=== PATIENT | female | born 1985 | race African-American/Black ===

== ENCOUNTER 2016-03-01 13:33 | Outpatient (CLI) | payer BC, MEDICAID ==
[2016-03-01] MEDS ORDERED: HYDROXYZINE PAMOATE 50 MG CAPSULE ONE (15:12)
[2016-03-01 15:27] LABS: APPEARANCE,URINE SLIGHTLY-CLOUDY; BILIRUBIN,URINE NEGATIVE (NEGATIVE); GLUCOSE, URINE NEGATIVE (NEGATIVE); KETONES,URINE NEGATIVE (NEGATIVE); LEUKOCYTE ESTERASE,URINE NEGATIVE (NEGATIVE); NITRITE,URINE NEGATIVE (NEGATIVE); PROTEIN,URINE NEGATIVE (NEGATIVE); URINE SPECIFIC GRAVITY 1.011; UROBILINOGEN,URINE NEGATIVE mg/dL (<2.0)
--- NOTE | 2016-03-01 15:37 | Non Stress Test Report ---
Non Stress Test Datetime Report Generated by CPN: 03/01/2016 15:37 DEMOGRAPHIC EGA NST: 39.6 INDICATION Indication for Study: Ordered by Provider; Other MONITORING Monitor Explained: Monitor Explained; Test Explained; Patient Verbalized Understanding Time on Monitor: 03/01/2016 14:14 Time off Monitor: 03/01/2016 15:21 NST Duration: 67 NST INTERVENTIONS NST Interventions: PO Hydration; Reposition Patient Physician Notified NST: Dr. Neilsen BABY A: [id number] BABY A Movement : Present Contraction Frequency : irregular FHR Baseline : 140 Accelerations : 15X15 Decelerations : None Variability : Moderate 6-25bpm NST Review: Meets Criteria for Reactive NST NST Review and Verified By : NILO Ellis Results: Reactive NST REPORT Report Trigger: Send Report
[2016-03-01 15:43] LABS: URINE BARBITURATES SCREEN NEGATIVE; URINE METHADONE SCREEN NEGATIVE; URINE PHENCYCLIDINE SCREEN NEGATIVE
--- NOTE | 2016-03-03 11:56 | Antepartum Discharge Summary ---
Antepartum DC Datetime Report Generated by CPN: 03/03/2016 11:56 DIET/ACTIVITY/RESTRICTIONS Diet: Regular (03/01/2016 15:36:Delaney Ambrocio RN) Activity: Normal Activity (03/01/2016 15:36:Delaney Ambrocio, RN) TEACHING/INSTRUCTIONS/REFERRALS Referrals: None (03/01/2016 15:36:Delaney Ambrocio RN) Educational Materials- Other: Kick counts and term precautions (03/01/2016 15:36:Delaney Ambrocio RN) DISCHARGE INFORMATION Discharged AMA: No (03/01/2016 15:36:Delanye Ambrocio RN) Discharge Date/Time: 03/01/2016 15:45 (03/01/2016 15:36:Delaney Ambrocio RN) Discharged To: Home (03/01/2016 15:36:Delaney Ambrocio RN) Discharge Provider Name: Dr. Ramsey (03/01/2016 15:36:Delaney Ambrocio RN) Accompanied By: friend (03/01/2016 15:36:Delaney Ambrocio RN) Discharge Method: Ambulatory (03/01/2016 15:36:Delaney Ambrocio RN) Condition: Stable (03/01/2016 15:36:Delaney Ambrocio RN) FOLLOW UP INFORMATION Follow Up With: [facility] (03/01/2016 15:36:Delaney Ambrocio RN) Follow Up On: As Scheduled (03/01/2016 15:36:Delaney Ambrocio RN) Follow Up Phone Number: [facility] - (03/01/2016 15:36:Delaney Ambrocio RN) Comments: Patient given vistaril 50 mg PO prior to discharge per Dr. Ramsey. All questions answered. Agrees to plan of care. Instructed to follow-up as previously scheduled. (03/01/2016 15:36:Delaney Ambrocio RN) GENERAL INSTR-CALL PROVIDER IF: Contractions: Contractions or cramps become more frequent than 8 in one hour or 4 in 20 minutes; Regular painful contractions every 5 minutes or less for one hour. Time your contractions from the beginning of one to the beginning of the next (03/01/2016 15:36:Delaney Ambrocio RN) Pressure: Pressure in your vagina or lower abdomen that may feel like the baby is pushing down (03/01/2016 15:36:Delaney Ambrocio RN) Period Like Cramps: Period-like cramps or low dull backache that may come and go (03/01/2016 15:36:Delaney Ambrocio RN) Cramps/Diarrhea: Abdominal cramps that may be accompanied by diarrhea (03/01/2016 15:36:Delaney Ambrocio RN) Gush of Fluid/Blood: Gush of fluid or blood from your vagina (it is normal to have spotting after vaginal exam or intercourse) (03/01/2016 15:36:Delaney Ambrocio RN) Vaginal Discharge: Change in the type or amount of vaginal discharge (03/01/2016 15:36:Delaney Ambrocio RN) Decreased Movement: Your baby is not moving as much as usual- 4 movements in 1 hour after drinking and resting on side (03/01/2016 15:36:Delaney Ambrocio RN) Temperature: Temperature greater than 100.0(F) orally (03/01/2016 15:36:Delaney Ambrocio RN) Hypertension Signs/Symptoms: Severe headache which is not relieved 30 minutes after taking Tylenol(Acetaminophen); Blurry vision or spots before your eyes; Severe heartburn or pain on the upper right side of your abdomen that is not relieved by an antacid; Increased swelling in your face, hands or feet (03/01/2016 15:36:Delaney Ambrocio RN) Urinary Output: Decreased urinary output or dark colored urine (03/01/2016 15:36:Delaney Ambrocio RN) ADDITIONAL INSTRUCTIONS N/V Bazine/Crackers: Keep dry toast/crackers with you to [facility] on (03/01/2016 15:36:Delaney Ambrocio RN) N/V Frequent Meals: Eat small frequent meals (03/01/2016 15:36:Delaney Ambrocio RN) N/V Empty Stomach: Try to keep something in your stomach (don't let your stomach get empty) (03/01/2016 15:36:Delaney Ambrocio RN) N/V Time Getting Up: Take your time getting up (03/01/2016 15:36:Delaney Ambrocio RN) N/V Avoid Smells: Avoid smells that make you feel sick (03/01/2016 15:36:Delaney Ambrocio RN) Travel Seatbelts: Wear seatbelts or safety/lap belts (03/01/2016 15:36:Delaney Ambrocio RN) Travel Walk Frequently: Walk frequently, every 1-2 hours (03/01/2016 15:36:Delaney Ambrocio RN) Travel Comfort Clothes: Wear clothing that does not constrict and comfortable shoes (03/01/2016 15:36:Delaney Ambrocio RN) Travel Light Snack: Keep a light snack (e.g. dry crackers) with you at all times to prevent nausea (03/01/2016 15:36:Delaney Ambrocio RN) Travel Hydration: Drink plenty of water, low sodium and noncaffeinated drinks (03/01/2016 15:36:Delaney Ambrocio RN) Travel Medications: DO NOT take any medication that is not approved by your physician first (03/01/2016 15:36:Delaney Ambrocio RN) Travel PN Records: Always keep a copy of your medical record with you just in case (03/01/2016 15:36:Delaney Ambrocio RN) Edema Avoid Standing: Avoid standing for long periods, keep legs up when you can (03/01/2016 15:36:Delaney Ambrocio RN) Edema Rest on Side: When resting, lie on your side (left is best) (03/01/2016 15:36:Delaney Ambrocio RN) Edema Limit Sodium: Limit the amount of salty foods you eat (03/01/2016 15:36:Delaney Ambrocio RN) Edema Support Hose: Try to wear support hose as much as possible (03/01/2016 15:36:Delaney Ambrocio RN) Exercise Overheating: Avoid situations that would cause you to become overheated (03/01/2016 15:36:Delaney Ambrocio RN) Exercise Weather: Exercise outdoors only if the weather is reasonable and not too hot (03/01/2016 15:36:Delaney Ambrocio RN) Exercise Exertion: Do not over exert yourself when you exercise (03/01/2016 15:36:Delaney Ambrocio RN) Exercise Hydration: Drink plenty of fluids, especially water (03/01/2016 15:36:Delaney Ambrocio RN) Exercise Support: Wear good support hose, bra and shoes when exercising (03/01/2016 15:36:Delaney Ambrocio RN) Varicose Veins Instructions: Do not stand for long periods of time (03/01/2016 15:36:Delaney Ambrocio RN) Varicose Veins Elevate Sit: Try to keep your legs elevated when you are sitting (03/01/2016 15:36:Delaney Ambrocio RN) Varicose Veins Elevate Lying: When lying down, keep your legs elevated (03/01/2016 15:36:Delaney Ambrocio RN) Varicise Veins Non Binding: When wearing stockings or socks, make sure they are not too tight and bind your legs (03/01/2016 15:36:Delaney Ambrocio RN) Varicose Veins Support: Wear support hose/stockings at all times (03/01/2016 15:36:Delaney Ambrocio RN) Varicose Veins Periodic Move: If you have a job where you sit a lot, get up periodically and walk around (03/01/2016 15:36:Delaney Ambrocio, NILO)
--- NOTE | 2016-03-03 11:56 | L&D Current Admission ---
Current Admit Datetime Report Generated by CPN: 03/03/2016 11:56 ADMISSION INFORMATION Chief Complaint: Contractions (03/01/2016 14:29:Delaney Ambrocio, NILO)
--- NOTE | 2016-03-03 11:57 | L&D Flow Sheet ---
LD Flowsheet Datetime Report Generated by CPN: 03/03/2016 11:57 Datetime: 03/01/2016 15:21 Uterine Activity Monitor Mode: External (Delaney Ambrocio, RN) Frequency (min): 2-7 (Delaney Ambrocio, RN) Quality: Moderate (Delaney Ambrocio, RN) Duration (sec): 90-130 (Delaney Ambrocio, RN) Resting Tone (Palpate): Relaxed (Delaney Ambrocio, RN) Contraction Comments: irregular pattern (Delaney Lolly, RN) Assessment A Monitor Mode: External US (Del[place], RN) FHR Baseline Rate : 140 (Del[place], RN) FHR Baseline Changes: No Baseline Change (Delaney [place], RN) Variability: Moderate 6-25 bpm (Delaney [place], RN) Accelerations: 15X15 (Delaney [place], RN) Decelerations: None (Delanye [place], RN) Datetime: 03/01/2016 15:20 Medications Antiemetics/Antacids: Vistaril (mg) @ 50 (Delaney Ambrocio, RN) Datetime: 03/01/2016 15:14 Vital Signs Stage of : Antepartum (Delaney Ambrocio RN) NBP Sys/Ai/Mean (mmHg): 107 (QS system process) : 58 (QS system process) : 76 (QS system process) Pulse: 85 (QS system process) Respirations: 12 (Delaney Ambrocio RN) LaborFlag: Antepartum (QS system process) Datetime: 03/01/2016 15:00 Uterine Activity Monitor Mode: External (Delaney [place], RN) Quality: Moderate (Delaney [place], RN) Duration (sec): 60-130 (Delaney [place], RN) Resting Tone (Palpate): Relaxed (Delaney [place], RN) Contraction Comments: irregular pattern (Delaney [place], RN) Assessment A Monitor Mode: External US (Delaney [place], RN) FHR Baseline Rate : 140 (Delaney Lolly, RN) FHR Baseline Changes: No Baseline Change (Delaney Lolly, RN) Variability: Moderate 6-25 bpm (Delaney [place], RN) Accelerations: 15X15 (Delaney [place], RN) Decelerations: None (Delaney [place], RN) Communication Communication: Report Given to @ Dr. Ramsey (Delaney Ambrocio RN) Provider Notified (Name): Dr. Ramsey notified of patient OB history and chief complainyt of lower sharp abdominal pain, cervical exam /, and WNL urinalysis results, reactive NST. Orders received to discharge patient home to self care with Vistaril 50 mg PO. (Delaney Ambrocio RN) Notification Reason: Status Update; Status; Labor Status; Membrane Status; Uterine Activity; Pain; Lab/Diagnostic Study (Delaney Ambrocio RN) Communication Comments: Provider reviewed strip (Delaney Ambrocio RN) Datetime: 03/01/2016 14:49 Vaginal Exam Dilatation (cm): 1.0 (Delaney Ambrocio RN) Effacement (%): 50 (Delaney Ambrocio RN) Station: -2 (Delaney Ambrocio RN) Exam by: Shefali Ambrocio RN (Delaney Ambrocio RN) Vaginal Bleeding: None (Delaney Ambrocio RN) Cervix, Consistency: Soft (Delaney Ambrocio RN) Cervix, Position: Posterior (Delaney Ambrocio RN) Vaginal Exam Comments: Patient with labial peircing x1. Instructed to remove prior to delivery (Delaney Ambrocio RN) Datetime: 03/01/2016 14:43 Vital Signs Stage of : Antepartum (Delaney Ambrocio RN) NBP Sys/Ai/Mean (mmHg): 108 (QS system process) : 56 (QS system process) : 76 (QS system process) Pulse: 95 (QS system process) Respirations: 14 (Delaney Ambrocio RN) LaborFlag: Antepartum (QS system process) Datetime: 03/01/2016 14:30 Uterine Activity Monitor Mode: External; Palpation (Delaney Lolly, RN) Frequency (min): 3.5-4 (Delaney Lolly, RN) Quality: Moderate (Delaney Lolly, RN) Duration (sec): 90-110 (Delaney Lolly, RN) Resting Tone (Palpate): Relaxed (Delaney [place], RN) Assessment A Monitor Mode: External US (Delaney [place], RN) FHR Baseline Rate : 140 (Delaney [place], RN) FHR Baseline Changes: No Baseline Change (Delaney [place], RN) Variability: Moderate 6-25 bpm (Delaney [place], RN) Accelerations: 15X15 (Delaney Lolly, RN) Decelerations: None (Delaney [place], RN) Comments: reports positive movement (Delaney [place], RN) Datetime: 03/01/2016 14:29 Temperature (F): 98.4 (Delaney Ambrocio, RN) Temperature (C): 36.9 (QS system process) Temperature Route: Oral (Delaney Ambrocio, RN) Monitor Interventions for UA: [place] Adjusted (Delaney Ambrocio, RN) Frequency (min): q 3-4 minutes, patient states (Delaney [place], RN) Assessment A Monitor Mode: External US (Delaney Ambrocio, RN) Monitor Interventions for FHR: Ultrasound Adjusted (Delaney [place], RN) Pain Pain Scale: 3 (Delaney [place], RN) Pain Presence: Intermittent ([facility]) Pain Type: Sharp; Contraction ([facility]) Pain Location: Abdomen ([facility]) Pain Goal: 1 ([facility], [facility]) Pain Relief Measures: Comfort Measures ([facility], RN) Pain Coping: Breathing Through Contractions ([facility]) Vaginal Bleeding: None ([facility], RN) Maternal Assessment Level of Consciousness: Fully Conscious ([facility], [facility]) DTR's/Clonus: DTRs 2+; No Clonus ([facility], RN) Headache: Denies ([facility], RN) Breath Sounds, Left: Clear and Equal ([facility], RN) Breath Sounds, Right: Clear and Equal ([facility], RN) Nausea/Vomiting: Denies ([facility], RN) RUQ Epigastric Pain: Denies ([facility]) Patient Care Oxygen Method: Room Air (Delaney Ambrocio RN) Patient Position/Activity: Right Lateral; Semi-Fowlers (Delaney Ambrocio RN) Comfort Measures: Breathing/Relaxation; Family Support (Delaney Ambrocio RN) I/O Interventions: Clear Liquids Given (Delaney Ambrocio RN) Teaching Instructional Method: Verbal; Patient Instructed; Family/Support Person Instructed; Verbalized Understanding (Delaney Ambrocio RN) Plan of Care: Plan of Care Discussed; Vaginal Delivery; Labor (Delaney Ambrocio, NILO) Unit Routine: [place] to Room; Call Ann; Bed; Visiting Policy; Waiting Areas; Security; Phone/Cell Phone Use; Unit Personnel; Handwashing; Flu/Illness Precautions; Monitoring; Safety/Fall Risk Prevention; Diet/Nutrition Services; Bathroom Privileges; Routine Time Outs (Delaney Ambrocio, RN) Labor/Induction: Labor Stages; Activity (Delaney Ambrocio, RN) Pain Management: Pain Scale/Goals; Comfort Measures (Delaney Ambrocio RN) Related: Common Discomforts of ; Maternal Physical Changes; Maternal Emotional Changes; Nutrition; Hydration; Activity and Rest (Delaney Ambrocio, NILO) LaborFlag: Labor (QS system process) Datetime: 03/01/2016 14:14 Vital Signs Stage of : Labor (Delaney Lolly, RN)
--- NOTE | 2016-03-03 11:57 | L&D Discharge Summary ---
OB Discharge Summary Datetime Report Generated by CPN: 03/03/2016 11:57 DISCHARGE DIAGNOSIS Diagnosis/Symptoms: False Labor Diagnoses/Symptoms Other: False Labor Gestation: 39.6 Number of Babies in Womb: 1 Parity: 0 DIET/ACTIVITY/RESTRICTIONS Diet: Regular Activity: Normal Activity TEACHING/INSTRUCTIONS/REFERRALS Referrals: None Educational Materials- Other: Kick counts and term precautions DISCHARGE INFORMATION Discharged AMA: No Discharge Date/Time: 03/01/2016 15:45 Discharged To: Home Discharge Provider Name: Dr. Ramsey Accompanied By: friend Discharge Method: Ambulatory Condition: Stable FOLLOW UP INFORMATION Follow Up With: [facility] Follow Up On: As Scheduled Follow Up Phone Number: [email or web address] - Comments: Patient given vistaril 50 mg PO prior to discharge per Dr. Ramsey. All questions answered. Agrees to plan of care. Instructed to follow-up as previously scheduled. GENERAL INSTR-CALL PROVIDER IF: Contractions: Contractions or cramps become more frequent than 8 in one hour or 4 in 20 minutes; Regular painful contractions every 5 minutes or less for one hour. Time your contractions from the beginning of one to the beginning of the next Pressure: Pressure in your vagina or lower abdomen that may feel like the baby is pushing down Period Like Cramps: Period-like cramps or low dull backache that may come and go Cramps/Diarrhea: Abdominal cramps that may be accompanied by diarrhea Gush of Fluid/Blood: Gush of fluid or blood from your vagina (it is normal to have spotting after vaginal exam or intercourse) Vaginal Discharge: Change in the type or amount of vaginal discharge Decreased Movement: Your baby is not moving as much as usual- 4 movements in 1 hour after drinking and resting on side Temperature: Temperature greater than 100.0(F) orally
--- NOTE | 2016-03-03 11:57 | L&D General Admission ---
General Admit Datetime Report Generated by CPN: 03/03/2016 11:57 INFORMATION Patient Age: 30 (03/01/2016 13:33:QS system process) EDC: 03/02/2016 00:00 (03/01/2016 14:18:Delaney Ambrocio RN) : 1 (03/01/2016 14:18:Delaney Ambrocio RN) Para: 0 (03/01/2016 14:18:Gloria Kay RN) Term: 0 (03/01/2016 14:18:Gloria Kay RN) : 0 (03/01/2016 14:18:Gloria Kay RN) Spontaneous Abortions: 0 (03/01/2016 14:18:Gloria Kay RN) Induced Abortions: 0 (03/01/2016 14:18:Gloria Kay RN) Livin (03/01/2016 14:18:Gloria Kay RN) Cesareans: 0 (03/01/2016 14:18:Gloria Kay RN) VBACs: 0 (03/01/2016 14:18:Gloria Kay RN) Ectopic: 0 (03/01/2016 14:18:Gloira Kay RN) Multiple Births: 0 (03/01/2016 14:18:Gloria Kay RN) Baby, Number in Womb: 1 (03/01/2016 15:36:Delaney Ambrocio RN) Baby, Number in Womb: 0 (03/01/2016 14:18:Gloria Kay RN) CARE Primary Metallurgical Or Materials Technician: [facility] (03/01/2016 14:18:Delaney Ambrocio RN) Adequate Care: Yes (03/01/2016 14:18:Delaney Ambrocio RN) Prepregnancy Weight (lb): 148 (03/01/2016 14:18:Delaney Ambrocio RN) Prepregnancy Weight (kg): 67.3 (03/01/2016 14:18:QS system process) Height (in): 62 (03/01/2016 14:44:QS system process) ALLERGIES Medication Allergy: No (03/01/2016 14:18:Gloria Kay RN) Medication Allergies: No Known Allergies (03/01/2016) (03/01/2016 14:43:QS system process) Medication Allergies: denies (03/01/2016 14:18:Delaney Ambrocio RN) Latex Allergy: No Latex Allergies (03/01/2016 14:18:Delaney Ambrocio RN) Food Allergies: denies (03/01/2016 14:18:Delaney Ambrocio RN) Environmental Allergies: denies (03/01/2016 14:18:Delaney Ambrocio RN) COMMUNICATION Primary Language: German (03/01/2016 14:18:Delaney Ambrocio RN) Medical Tx Preferred Language: German (03/01/2016 14:18:Delaney Ambrocio RN) DEMOGRAPHICS Address: [address] [place] [address] [place] [address] (03/01/2016 13:33:QS system process) Zipcode: [address] (03/01/2016 13:33:QS system process) Home (03/01/2016 13:33:QS system process) SSN: [id number] (03/01/2016 13:33:QS system process) Next of Kin Name: VADIM DENISE (03/01/2016 13:33:QS system process) Next of Kin (03/01/2016 13:33:QS system process) Next of Kin Relationship: MO (03/01/2016 13:33:QS system process) Date of : 1985 (03/01/2016 13:33:QS system process) Marital Status: Single (03/01/2016 13:33:QS system process) Sex: Female (03/01/2016 13:33:QS system process) Race: (03/01/2016 13:33:QS system process) Ethnicity: Non- or (03/01/2016 13:33:QS system process) Worship: None (03/01/2016 13:33:QS system process) DRUG AND ALCOHOL USE Alcohol: No (03/01/2016 14:18:Delaney Ambrocio RN) Cigarettes: Never Smoker. [id number] (03/01/2016 14:18:Delaney Ambrocio RN) Marijuana: No (03/01/2016 14:18:Delaney Ambrocio RN) Cocaine: No (03/01/2016 14:18:Delaney Ambrocio RN) Other Illicit Drugs: No (03/01/2016 14:18:Delaney Ambrocio RN) VACCINE HISTORY Influenza Vaccine: Yes (03/01/2016 14:18:Delaney Ambroico RN) Pneumococcal Vaccine: No (03/01/2016 14:18:Delaney Ambrocio RN) Tetanus Vaccine: Yes (03/01/2016 14:18:Delaney Ambrocio RN) Tdap Vaccine: Yes (03/01/2016 14:18:Delaney Ambrocio RN) Hepatitis B Vaccine: Yes (03/01/2016 14:18:Delaney Ambrocio RN) Foxing Cutting Machine Operator: [facility] (03/01/2016 14:18:Delaney Ambrocio RN) Feeding Preference: Formula (03/01/2016 14:18:Delaney Ambrocio RN) Benefit of Breast Feed Discussed: Yes (03/01/2016 14:18:Delaney Ambrocio RN) Circumcision: Yes (03/01/2016 14:18:Delaney Ambrocio RN) Classes Attended: No (03/01/2016 14:18:Delaney Ambrocio RN) Tubal Ligation: No (03/01/2016 14:18:Delaney Ambrocio RN) Tubal Authorization Signed: N/A (03/01/2016 14:18:Delaney Ambrocio RN) Consent: N/A (03/01/2016 14:18:Delaney Leicester, RN) Consent Signed: N/A (03/01/2016 14:18:Delaney Ambrocio RN) Pain Management Plans: Natural; Medications; Epidural (03/01/2016 14:18:Delaney Ambrocio RN) Plans for Labor and Delivery: None (03/01/2016 14:18:Delaney Ambrocio RN) Support Person: Seble Cooper (03/01/2016 14:18:Delaney Ambrocio RN) Support Person Relationship: Other (03/01/2016 14:18:Delaney Ambrocio RN) Other Relationship: friend (03/01/2016 14:18:Delaney Ambrocio RN) Cultural/Spritual Practice: No (03/01/2016 14:18:Delaney Ambrocio RN) Spir/Cult Dietary Needs: No (03/01/2016 14:18:Delaney Ambrocio RN) LIVING SITUATION/DISCHARGE PLAN Living Arrangements: House (03/01/2016 14:18:Delaney Ambrocio RN) Adequate Access to:: Electric; Heat; Refrigeration; Plumbing/Running water; Phone; Transportation (03/01/2016 14:18:Delaney Ambrocio RN) WIC Program: Yes (03/01/2016 14:18:Delaney Ambrocio RN) Discharge Ground Intelligence Officer Person: Vadim Denise (03/01/2016 14:18:Delaney Ambrocio RN) Person to Help after Discharge: Miles denise (03/01/2016 14:18:Delaney Ambrocio RN) Currently Using Commun Resources: No (03/01/2016 14:18:Delaney Ambrocio RN) Outside Agency/Hauling Contractor: No (03/01/2016 14:18:Delaney Ambrocio RN) Car Seat for Discharge: Yes (03/01/2016 14:18:Delaney Ambrocio RN) Adoption Requested: No (03/01/2016 14:18:Delaney Ambrocio RN) Pt Contact w/infant Post : N/A (03/01/2016 14:18:Delaney Ambrocio RN) LABS Blood Type: A Positive (03/01/2016 14:18:Gloria Kay RN) Group Beta Strep: Positive (03/01/2016 14:18:Gloria Kay RN) Gonorrhea: Negative (03/01/2016 14:18:Gloria Kay RN) Chlamydia: Negative (03/01/2016 14:18:Gloria Kay RN) RPR/VDRL: Nonreactive (03/01/2016 14:18:Gloria Kay RN) HIV Results: Negative (03/01/2016 14:18:Gloria Kay RN) Hepatitis B: Negative (03/01/2016 14:18:Gloria Kay RN) Rubella: Immune (03/01/2016 14:18:Gloria Kay RN) OB/PREVIOUS HISTORY Current Procedures: Ultrasound (03/01/2016 14:18:Delaney Ambrocio RN) History of Previous : No (03/01/2016 14:18:Delaney Ambrocio RN) History of Gestational Diabetes: No (03/01/2016 14:18:Delaney Ambrocio RN) History of PIH: No (03/01/2016 14:18:Delaney Ambrocio RN) History of Incompetent Cervix: No (03/01/2016 14:18:Delaney Ambrocio RN) History of Placenta Previa/Abrup: No (03/01/2016 14:18:Delaney Ambrocio RN) History of Macrosomia: No (03/01/2016 14:18:Delaney Ambrocio RN) History of IUGR: No (03/01/2016 14:18:Delaney Ambrocio RN) History of Hemorrhage: No (03/01/2016 14:18:Delaney Ambrocio RN) History of Loss/Stillborn: No (03/01/2016 14:18:Delaney Ambrocio RN) History of : No (03/01/2016 14:18:Delaney Ambrocio RN) History of D (Rh) Sensitization: No (03/01/2016 14:18:Delaney Ambrocio RN) History Recurrent Loss/Stillborn: No (03/01/2016 14:18:Delaney Ambrocio RN) History Depression/PP Depression: No (03/01/2016 14:18:Delaney Ambrocio RN) History of Uterine Anomaly/VANNA: No (03/01/2016 14:18:Delaney Ambrocio RN) History of Infertility: No (03/01/2016 14:18:Delaney Ambrocio RN) History of ART Treatment: No (03/01/2016 14:18:Delaney Ambrocio RN) History of VANNA: No (03/01/2016 14:18:Delaney Ambrocio RN) MEDICAL HISTORY Med Hx Diabetes: No (03/01/2016 14:18:Delaney Ambrocio RN) Med Hx Hypertension: No (03/01/2016 14:18:Delaney Ambrocio RN) Med Hx Heart Disease: No (03/01/2016 14:18:Delaney Ambrocio RN) Med Hx Autoimmune Disorder: No (03/01/2016 14:18:Delaney Ambrocio RN) Med Hx Kidney Disease/UTI: No (03/01/2016 14:18:Delaney Ambrocio RN) Med Hx Neurologic/Epilepsy: No (03/01/2016 14:18:Delaney Ambrocio RN) Med Hx Psychiatric Disorders: No (03/01/2016 14:18:Delaney Ambrocio RN) Med Hx Hepatitis/Liver Disease: No (03/01/2016 14:18:Delaney Ambrocio RN) Med Hx Varicosities/Phlebitis: No (03/01/2016 14:18:Delaney Ambrocio RN) Med Hx Thyroid Dysfunction: No (03/01/2016 14:18:Delaney Ambrocio RN) Med Hx Trauma/Violence: No (03/01/2016 14:18:Delaney Ambrocio RN) Med Hx Blood Transfusion: No (03/01/2016 14:18:Delaney Ambrocio RN) Med Hx Pulmonary (Asthma,TB): No (03/01/2016 14:18:Delaney Ambrocio RN) Med Hx Breast: No (03/01/2016 14:18:Delaney Ambrocio RN) Med Hx MATH AND PHYSICS INSTRUCTOR Surgery: No (03/01/2016 14:18:Delaney Ambrocio RN) Med Hx Hospitalization/Surgery: No (03/01/2016 14:18:Delaney Ambrocio RN) Med Hx Anesthetic Complications: No (03/01/2016 14:18:Delaney Ambrocio RN) Med Hx Abnormal Pap Smear: No (03/01/2016 14:18:Delaney Ambrocio RN) Other Medical Diseases: No (03/01/2016 14:18:Delaney Ambrocio RN) Med Hx Significant Family Hx: No (03/01/2016 14:18:Delaney Ambrocio RN) Details of Med/Surg Hx: anemia (03/01/2016 14:18:Delaney Ambrocio RN) INFECTIOUS HISTORY Inf Hx Gonorrhea: No (03/01/2016 14:18:Delaney Ambrocio RN) Inf Hx Chlamydia: No (03/01/2016 14:18:Delaney Ambrocio RN) Inf Hx Syphilis: No (03/01/2016 14:18:Delaney Ambrocio RN) Inf Hx HIV/AIDS: No (03/01/2016 14:18:Delaney Ambrocio RN) Inf Hx Human Papilloma Virus: No (03/01/2016 14:18:Delaney Ambrocio RN) Inf Hx Pt/Partner Genital Herpes: No (03/01/2016 14:18:Delaney Ambrocio RN) Inf Hx Tuberculosis/Exposure: No (03/01/2016 14:18:Delaney Ambrocio RN) Inf Hx Hepatitis B,C: No (03/01/2016 14:18:Delaney Ambrocio RN) Inf Hx Rash or Viral Illness: No (03/01/2016 14:18:Delaney Ambrocio RN) GENETIC HISTORY Gen Hx Age >=35 at CATHLEEN: No (03/01/2016 14:18:Delaney Ambrocio RN) Gen Hx Thalassemia: No (03/01/2016 14:18:Delaney Ambrocio RN) Gen Hx Congenital Heart Defect: No (03/01/2016 14:18:Delaney Ambrocio RN) Gen Hx Neural Tube Defect: No (03/01/2016 14:18:Delaney Ambrocio RN) Gen Hx Down's Syndrome: No (03/01/2016 14:18:Delaney Ambrocio RN) Gen Hx Geovanny-Sachs: No (03/01/2016 14:18:Delaney Ambrocio RN) Gen Hx Angelique: No (03/01/2016 14:18:Delaney Ambrocio RN) Gen Hx Familial Dysautonomia: No (03/01/2016 14:18:Delaney Ambrocio RN) Gen Hx Sickle Cell Disease/Trait: No (03/01/2016 14:18:Delaney Ambrocio RN) Gen Hx Hemophilia/Blood Disorder: No (03/01/2016 14:18:Delaney Ambrocio RN) Gen Hx Muscular Dystrophy: No (03/01/2016 14:18:Delaney Ambrocio RN) Gen Hx Cystic Fibrosis: No (03/01/2016 14:18:Delaney Ambrocio RN) Gen Hx Huntingtons Chorea: No (03/01/2016 14:18:Delaney Ambrocio RN) Gen Hx Mental Retardation/Autism: No (03/01/2016 14:18:Delaney Ambrocio RN) Gen Hx Tested for Fragile X: No (03/01/2016 14:18:Delaney Ambrocio RN) Gen Hx Other Inher/Chromosomal: No (03/01/2016 14:18:Delaney Ambrocio RN) Gen Hx Maternal Metabolic DO: No (03/01/2016 14:18:Delaney Ambrocio RN) Gen Hx Pt Father or FOB Defect: No (03/01/2016 14:18:Delaney Ambrocio RN) Gen Hx Other Genetic History: No (03/01/2016 14:18:Delaney Ambrocio RN) Gen Hx Drugs/Meds since LMP: No (03/01/2016 14:18:Delaney Ambrocio RN)
== END 2016-03-01 15:45 | disposition home or self-care (01) ==
LOC: LC 13:33
PROVIDERS: ATTEND Specialist
PROC: 4A1HXCZ Monitoring of Products of Conception, Cardiac Rate, External Approach (ICD-10-PCS; principal; 2016-03-01)
DX: O47.1 False labor at or after 37 completed weeks of gestation (principal); Z3A.39 39 weeks gestation of pregnancy
CPT/HCPCS: 59025; 81005; G0479; 80307